=== PATIENT | female | born 1960 | race Caucasian/White ===

== ENCOUNTER 2019-03-10 20:53 | Emergency (ER) | payer OTHER ==
[~2019-03-10] VITALS: Ht 165.1 cm; Wt 77.3 kg
[2019-03-10 23:20] VITALS: BP 119/63
== END 2019-03-10 23:55 | disposition home or self-care (01) ==
LOC: EMS 20:55
DX: F32.9 Major depressive disorder, single episode, unspecified (principal); F43.20 Adjustment disorder, unspecified